=== PATIENT | male | born 1980 | race African-American/Black ===

== ENCOUNTER 2019-03-13 02:16 | Emergency (ER) | payer SELFPAY ==
[~2019-03-13] VITALS: Ht 172.7 cm; Wt 77.1 kg
--- NOTE | 2019-03-13 02:25 | NUR ---
TO BED 14 AMBULATORY C/O SI WITH PLAN TO OVERDOSE ON MEDS. DENIES HI. PT ADMITS TO ETOH. PT DENIES DRUG USE. PT AAOX4 NO ACUTE DISTRESS NOTED, RESP EVEN AND UNLABORED. OT CALM AND COOPERATIVE AT THIS TIME. URINE SAMPLE COLLECTED AND SENT TO LAB. PLACED PT ON HOSPITAL GOWN, ALL BELONGINGS REMOVED FROM ROOM. 1:1 SITTER AT BEDSIDE FOR PT SAFETY.
--- NOTE | 2019-03-13 02:35 | NUR ---
URINE SPECIMEN COLLECTED AND SENT TO LAB.
--- NOTE | 2019-03-13 02:35 | NUR ---
ER PHLEB AT BEDSIDE FOR BLOOD DRAW.
[2019-03-13 02:48] LABS: APPEARANCE,URINE CLEAR (CLEAR); BILIRUBIN,URINE NEGATIVE (NEGATIVE); BLOOD, URINE NEGATIVE Ery/uL (NEGATIVE); COLOR,URINE YELLOW (YELLOW); KETONES,URINE NEGATIVE (NEGATIVE); LEUKOCYTE ESTERASE ,URINE NEGATIVE (NEGATIVE); NITRITE, URINE NEGATIVE (NEGATIVE); PROTEIN,URINE NEGATIVE (NEGATIVE); UGLUCOSE NEGATIVE (NEGATIVE); UROBILINOGEN,URINE 0.2 EU/dL (0.2)
[2019-03-13 02:48] LABS: BASOPHILS # (AUTO) 0.1 /CMM (0.0-0.2); BASOPHILS % (AUTO) 1.1 % (0.0-2.0); HEMATOCRIT 37 % (39-51); LYMPHOCYTES # (AUTO) 1.7 /CMM (0.8-4.8); LYMPHOCYTES % (AUTO) 29.9 % (20.0-44.0); MEAN CORPUSCULAR HGB CONC 32 g/dl (31.0-36.0); MEAN CORPUSCULAR VOLUME 77 fL (80-96); MONOCYTES # (AUTO) 0.6 /CMM (0.1-1.30); MONOCYTES % (AUTO) 10.5 % (2.0-12.0); NEUTROPHILS # (AUTO) 3.1 /CMM (1.8-8.9); NEUTROPHILS % (AUTO) 53.5 % (43.0-81.0); PLATELET COUNT (AUTO) 311 /CMM (150-450); RED BLOOD CELL COUNT(AUTO) 4.83 MIL/uL (4.5-6.0); WHITE BLOOD COUNT (AUTO) 5.8 K/uL (4.3-11.0)
[2019-03-13 02:56] LABS: CREATININE 0.9 mg/dL (0.6-1.3); POTASSIUM 3.6 mmol/L (3.5-5.1)
[2019-03-13 03:03] LABS: ALBUMIN 3.2 g/dL (3.4-5.0); BILIRUBIN,TOTAL 0.2 mg/dL (0.2-1.0); SALICYLATE 4.1 mg/dL (2.8-20.0); TOTAL PROTEIN, SERUM 6.9 g/dL (6.4-8.2)
--- NOTE | 2019-03-13 03:09 | NUR ---
PT PROVIDED WITH SANDWICH AND WATER PER REQUEST
--- NOTE | 2019-03-13 03:29 | NUR ---
FAXED CLINICAL INFORMATION TO [facility]. NO BEDS AVAILABLE AT THIS TIME.
--- NOTE | 2019-03-13 04:32 | NUR ---
PT DOES NOT HAVE INSURANCE, UNABLE TO BE ACCEPTED AT [facility] FOR VOLUNTARY ADMISSION. PER ADMITING, PT DOES NOT QUALIFY FOR PRESUMPTIVE MEDICAL. CALLED ART, INSURANCE INVESTIGATOR FOR EVALUATION, NO ANSWER. WILL FOLLOW UP. ER MD AWARE.
--- NOTE | 2019-03-13 08:28 | NUR ---
Social service consult requested by BRYSON Bliss for suicidal ideations with a plan. Pt. is a 38 year old male who came to [facility] ED complaining of suicidal ideations. Pt's plan to overdose on pills. IRINA met with the pt. bedside. Pt. is alert and oriented x 4. Pt. was lying in bed during the assessment. Pt. was cooperative and pleasant during the assessment. Pt. states his is homeless and has been for the past year. When asked where he was living prior to being homeless, pt. said, " the streets." Pt. states he has a psychiatric diagnosis of Paranoid Schizophrenia. Pt. states he is feeling suicidal with a plan to overdose on pills. Pt. takes 2mg of Zyprexa. Pt. had one psychiatric hospitalization last year at [facility]. Pt. is not eligible for presumptive insurance since pt. had applied for presumptive insurance within the past 12 months. Pt. denies any alcohol and drug use. Pt's toxicology is negative for any alcohol/drug use. IRINA consulted with Social sales service coordinator Lisa Moe who informed IRINA pt. will have to be seen by deliverer merchandise.
--- NOTE | 2019-03-13 09:42 | NUR ---
Patient was evaluated by software implementation specialist and SS fashion supervisor Lisa Moe who reported pt. contracted for safety and is psychiatrically cleared for discharge. Pt. will be provided with a prescription for Zyprexa. IRINA met with pt. bedside and provided him with the following homeless custodial, health and mental health clinic resources: [facility] located at [address] [facility] ; [facility], [address] [place] [address], [place] [place] ; [facility], [address] [facility] [address] ; [facility] Homeless Resource Directory which includes food stamps, transitional housing, showers and hot meals etc; Mental Health clinics such as [facility] ; [facility] ; Health clinics;[facility] and Alcohol treatment centers such as [facility], ; [facility] Substance Abuse Hotline and [facility] . IRINA encouraged pt. to go to a mental health clinic in the community for ongoing psychiatric treatment. Pt. was provided with breakfast and TAP card. Homeless Patient Waiver form was signed by the pt. and placed in pt's chart.
--- NOTE | 2019-03-13 09:54 | NUR ---
MEDICALLY AND PSYCH CLEARED. AAOX4, AMBULATORY W/ STEADY GAIT.D/C IN STABLE CONDITION. PT PROVIDED W/ A TAP CARDF FOR TRANSPORTATION.
[2019-03-13 09:58] VITALS: BP 108/69
== END 2019-03-13 09:58 | disposition home or self-care (01) ==
LOC: ER 02:18
DX: R45.851 Suicidal ideations (principal); F20.9 Schizophrenia, unspecified; F10.10 Alcohol abuse, uncomplicated; F17.200 Nicotine dependence, unspecified, uncomplicated; Y90.1 Blood alcohol level of 20-39 mg/100 ml
CPT/HCPCS: 36415; 80048; 80076; 80305; 80307; 80329; 81001; 85025; 99284; G0480; 81000-TC